=== PATIENT | male | born 1995 | race African-American/Black ===

== ENCOUNTER 2016-10-27 15:39 | Emergency (ER) | payer SELFPAY ==
[~2016-10-27 15:39] MED LIST: FAMO-63 PO; FAMO40TA57 PO; ONDA4TAB7 PO
[2016-10-27 15:54] VITALS: BP 151/64
--- NOTE | 2016-10-27 16:21 | PHYS DOC ---
Past Medical History Past Medical History: GERD Past Surgical History: Appendectomy Alcohol Use: None Drug Use: None Adult General Chief Complaint Chief Complaint: SKIN PROBLEM HPI HPI Patient is a 20 year old male presents emergency room today with complaint of a rash/bumps on the left side of his scrotum that began approximately 4 days ago. Patient stated that he used a friend's razor to shave the area and noticed the bumps approximately 3 days after that. He denies squeezing the area. He denies any history of recurrent skin infections. He denies any antibiotic use within the past 30 days. Review of Systems Review of Systems Constitutional: Denies fever or chills [] Eyes: Denies change in visual acuity, redness, or eye pain [] HENT: Denies nasal congestion or sore throat [] Respiratory: Denies cough or shortness of breath [] Cardiovascular: No additional information not addressed in HPI [] GI: Denies abdominal pain, nausea, vomiting, bloody stools or diarrhea [] : Denies dysuria or hematuria [] Musculoskeletal: Denies back pain or joint pain [] Integument: Denies rash or skin lesions [] Neurologic: Denies headache, focal weakness or sensory changes [] Endocrine: Denies polyuria or polydipsia [] Allergies Allergies Allergies Coded Allergies Type Severity Reaction Last Updated Verified No Known Drug Allergies 02/21/16 No Physical Exam Physical Exam Constitutional: Well developed, well nourished, no acute distress, non-toxic appearance. [] HENT: Normocephalic, atraumatic, bilateral external ears normal, oropharynx moist, no oral exudates, nose normal. [] Eyes: PERRLA, EOMI, conjunctiva normal, no discharge. [] Neck: Normal range of motion, no tenderness, supple, no stridor. [] Cardiovascular:Heart rate regular rhythm, no murmur [] Lungs & Thorax: Bilateral breath sounds clear to auscultation [] Abdomen: Bowel sounds normal, soft, no tenderness, no masses, no pulsatile masses. [] Skin: There are hypertrophic oil glands noted along the proximal ring of the patient's scrotum at the base of the penis. These are not inflamed. There is no erythema. There are no pustules present additional purulent drainage. There are no fluctuant pockets. Back: No tenderness, no CVA tenderness. [] Extremities: No tenderness, no cyanosis, no clubbing, ROM intact, no edema. [] Neurologic: Alert and oriented X 3, normal motor function, normal sensory function, no focal deficits noted. [] Psychologic: Affect normal, judgement normal, mood normal. [] Current Patient Data Vital Signs Vital Signs Date Time Temp Pulse Resp B/P Pulse Ox O2 Delivery O2 Flow Rate FiO2 10/27/16 15:54 98.4 70 12 151/64 98 Room Air 98.4 EKG EKG [] Radiology/Procedures Radiology/Procedures [] Course & Med Decision Making Course & Med Decision Making Pertinent Labs and Imaging studies reviewed. (See chart for details) [] Dragon Disclaimer Dragon Disclaimer This electronic medical record was generated, in whole or in part, using a voice recognition dictation system. Departure Departure Impression: Primary Impression: Abnormal sebaceous gland activity Disposition: HOME, SELF-CARE Condition: GOOD Referrals: NO PCP (PCP) Patient Instructions: Folliculitis Additional Instructions: 1. The hair follicles on your scrotum are slightly enlarged hyperactive due to the increased oil glands. There is no evidence of infection. 2. As discussed, do not squeeze, pinch her try to "last" these bumps. They will go down on the room. The itching will eventually subside. 3. You can take 25 mg of Benadryl every 6-8 hours or plane Benadryl cream to the area. Do not apply steroid cream. Do not apply Hawkins, witch pearl or alcohol to the area. Avoid shaving with a razor to this area. 4. Follow-up with a primary care doctor's office within [id number] days. If you do not have a primary care doctor, then use the pamphlet provided for assistance in finding one. CAR FREITAS Oct 27, 2016 16:21
== END 2016-10-27 16:34 | disposition home or self-care (01) ==
LOC: ER 15:39
DX: L73.8 Other specified follicular disorders (principal); K21.9 Gastro-esophageal reflux disease without esophagitis
CPT/HCPCS: 99281

== ENCOUNTER 2018-01-02 11:29 | Emergency (ER) | payer SELFPAY, BC | END 2018-01-02 13:01 | disposition home or self-care (01) | LOC: ER 11:29 | DX: H00.024 Hordeolum internum left upper eyelid (principal); F12.10 Cannabis abuse, uncomplicated; Z90.49 Acquired absence of other specified parts of digestive tract | CPT/HCPCS: 99283 ==